=== PATIENT | male | born 1990 | race Caucasian/White ===

== ENCOUNTER 2018-03-28 23:55 | Emergency (ER) | payer SELFPAY ==
[~2018-03-28] VITALS: Ht 175.3 cm; Wt 100.0 kg
[2018-03-28 23:58] VITALS: BP 132/85
== END 2018-03-29 01:50 | disposition left against medical advice (07) ==
LOC: ER 23:55
DX: Z53.21 Procedure and treatment not carried out due to patient leaving prior to being seen by health care provider (principal); R06.02 Shortness of breath; R07.89 Other chest pain
CPT/HCPCS: 93005